=== PATIENT | female | born 1945 | race Hispanic/Latino ===

== ENCOUNTER 2019-09-05 18:24 | Emergency (ER) | payer MEDICARE, OTHER | END 2019-09-05 19:19 | disposition home or self-care (01) | LOC: ERS 18:24 | DX: Z20.828 Contact with and (suspected) exposure to other viral communicable diseases (principal) | CPT/HCPCS: 99282 ==

== ENCOUNTER 2020-03-11 20:20 | Emergency (ER) | payer MEDICARE ==
[2020-03-11 20:57] LABS: #Lymphocytes 1.5 thou/uL (1.20-3.40); #Monocytes 0.4 thou/uL (0.11-0.59); %Basophils 0.8 % (0.0-1.0); %Eosinophils 0.2 % (0.0-10.0); %Lymphocytes 25.5 % (21.0-51.0); %Monocytes 6.1 % (0.0-10.0); %Neutrophils 67.3 % (42.0-75.0); Hemoglobin 11.9 g/dL (12.0-16.0); Mean Corpuscular HGB CONC 34.9 g/dL (32.0-36.0); Mean Corpuscular Hemoglobin 31.3 pg (27.0-31.0); Mean Corpuscular Volume 89.6 fL (78.0-98.0); Mean Platelet Volume 8.1 fL (7.4-10.4); Platelet Count 252 thou/uL (130-400); RBC Distribution Width 11.9 % (11.5-14.5); Red Blood Cell (RBC) Count 3.79 mill/uL (4.20-5.40)
--- NOTE | 2020-03-11 21:03 | RAD ---
PORTABLE CHEST ONE VIEW: 03/11/20 at 8:42 p.m. HISTORY: COVID exposure, symptoms. FINDINGS: The heart size is borderline. The aorta is tortuous. The lungs are expanded without focal areas of co nsolidation, pneumothoraces or pleural effusions. IMPRESSION: No acute process. POS: SILVAA
[2020-03-11 21:18] LABS: ALT (SGPT) 21 U/L (8-55); AST (SGOT) 19 U/L (5-34); Alkaline Phosphatase 65 U/L (40-110); Anion Gap 14 mmol/L (10-20); BUN (Urea Nitrogen) 15 mg/dL (9.8-20.1); Bilirubin, Total 0.8 mg/dL (0.2-1.2); Calc. Creatinine Clearance 0 mL/min (70-130); Calcium 8.5 mg/dL (7.8-10.44); Carbon Dioxide 22 mmol/L (23-31); Chloride 92 mmol/L (98-107); Globulin 2.9 g/dL (2.4-3.5); Glucose 121 mg/dL (83-110); Lipase 9 U/L (8-78); Potassium 3.6 mmol/L (3.5-5.1); Protein, Total 6.9 g/dL (6.0-8.3); Sodium 124 mmol/L (136-145)
[2020-03-11] MEDS ORDERED: Ondansetron PF 4 MG/2 ML Vial ONE (21:20)
[2020-03-11 22:21] LABS: Bilirubin 1+ (Negative); Blood, Urine Negative (Negative); Clarity Turbid (Clear); Glucose, Urine (Dipstick) Normal (Negative); Ketone, Urine Negative (Negative); Leukocyte 500 Leu/uL (Negative); Nitrite 1+ (Negative); Protein, Urine (Dipstick) 20 mg/dL (Neg-Trace); RBC/HPF 0-3 HPF (0-3); Specific Gravity, Urine 1.017 (1.002-1.036)
[2020-03-11 22:22] LABS: Bacteria/HPF 2+ HPF (None Seen); Mucous/LPF Rare LPF (<2+); Squamous Epithelial 21-50 HPF (0-3)
--- NOTE | 2020-03-12 00:08 | CT ---
CT abdomen and pelvis noncontrast HISTORY: Flank pain. FINDINGS: Each renal collecting system, ureter, and urinary bladder are decompressed without stone ev ident. Calcified granulomata at the lung bases consistent with healed granulomatous disease. The 2.7 cm low- density lesion at the left adrenal gland likely represents an adenoma. A 5.2 cm cyst projects laterally from the inferior pole of the right kidney. A small exophytic cyst at the inferior pole of the left kidney is 1.3 cm. Lack of contrast limits evaluation of the soft tissues. No evidence of bowel obstruction or inflammat ion. Diverticula arise from the colon. Degenerative changes of lumbar spine. Scattered hemangiomas of the vertebral bodies. IMPRESSION : No evidence of urinary tract obstruction or calcification. No evidence of bowel obstruction. Bilateral renal cysts. Incidental-type findings as detailed above. Diverticulosis. No evidence of diverticulitis.
== END 2020-03-12 01:08 | disposition home or self-care (01) ==
LOC: ERS 20:20
DX: E87.1 Hypo-osmolality and hyponatremia (principal); Z20.828 Contact with and (suspected) exposure to other viral communicable diseases; I10 Essential (primary) hypertension; Z79.899 Other long term (current) drug therapy
CPT/HCPCS: 71045; 74176; 80053; 81003; 81015; 83690; 84484; 85025; 93005; 96374; J2405

== ENCOUNTER 2020-03-21 10:43 | Observation (INO) | payer MEDICARE ==
[2020-03-21 12:02] LABS: ALT (SGPT) 20 U/L (8-55); AST (SGOT) 19 U/L (5-34); Albumin 3.9 g/dL (3.4-4.8); Alkaline Phosphatase 65 U/L (40-110); Anion Gap 14 mmol/L (10-20); BUN (Urea Nitrogen) 21 mg/dL (9.8-20.1); Bilirubin, Total 0.8 mg/dL (0.2-1.2); Calc. Creatinine Clearance 0 mL/min (70-130); Calcium 8.3 mg/dL (7.8-10.44); Carbon Dioxide 22 mmol/L (23-31); Chloride 96 mmol/L (98-107); Globulin 2.8 g/dL (2.4-3.5); Glucose 106 mg/dL (83-110); Potassium 4.1 mmol/L (3.5-5.1); Protein, Total 6.7 g/dL (6.0-8.3); Sodium 128 mmol/L (136-145)
--- NOTE | 2020-03-21 12:05 | RAD ---
RADIOGRAPH CHEST 1 VIEW: DATE: 03/21/2020 TIME: 11:56 AM HISTORY: 74-year-old female with cough COMPARISON: 03/11/2020 FINDINGS: New finding of faint, small, mild reticulonodular infiltrates at left mid and lower lung zones. No cardiomegaly or pneumothorax. IMPRESSION: Mild left-sided infiltrates: Evidence for early left-sided pneumonia.
[2020-03-21 12:15] LABS: #Lymphocytes 0.9 thou/uL (1.20-3.40); #Monocytes 0.4 thou/uL (0.11-0.59); %Basophils 0.4 % (0.0-1.0); %Eosinophils 0.1 % (0.0-10.0); %Lymphocytes 14.2 % (21.0-51.0); %Monocytes 5.6 % (0.0-10.0); %Neutrophils 79.7 % (42.0-75.0); Hemoglobin 12.1 g/dL (12.0-16.0); Mean Corpuscular HGB CONC 35.2 g/dL (32.0-36.0); Mean Corpuscular Hemoglobin 31.3 pg (27.0-31.0); Mean Platelet Volume 7.4 fL (7.4-10.4); Platelet Count 262 thou/uL (130-400); RBC Distribution Width 11.7 % (11.5-14.5); Red Blood Cell (RBC) Count 3.85 mill/uL (4.20-5.40); White Blood Cell (WBC) Count 6.2 thou/uL (4.8-10.8)
[2020-03-21] MEDS ORDERED: Ibuprofen 200 MG TAB ONE (12:18)
[2020-03-21] MEDS ORDERED: Acetaminophen 500 MG TAB ONE (12:18)
[2020-03-21 13:26] LABS: Bacteria/HPF 4+ HPF (None Seen); Bilirubin Negative (Negative); Blood, Urine Negative (Negative); Clarity Turbid (Clear); Glucose, Urine (Dipstick) Normal (Negative); Ketone, Urine Negative (Negative); Leukocyte 250 Leu/uL (Negative); Nitrite 2+ (Negative); Protein, Urine (Dipstick) 10 mg/dL (Neg-Trace); RBC/HPF 0-3 HPF (0-3); Specific Gravity, Urine 1.019 (1.002-1.036); Urobilinogen Normal mg/dL (Less than 2); WBC/HPF 21-50 HPF (0-3)
--- NOTE | 2020-03-21 13:53 | PDOC.HHP ---
Hospitalist HPI - History of Present Illness Upper back pain History of Present Illness: 74-year-old female who came to emergency room with a complaint of of back pain, She was also having nausea last night, patient reports that 2 weeks ago she was diagnosed with COVID-19 and she recovered well, currently she does not have any shortness of breath or chest pain or sinus symptoms or sore throat. In the em ergency room patient was found with hyponatremia, she he had a chest x-ray which showed mild left-sided infiltrate, patient denies any fever or chills. In the emergency room patient is given Rocephin, Tylenol ibuprofen. Her urine analysis was consistent with UTI, ED Course: Patient is given Rocephin, Tylenol and ibuprofen VITAL SIGNS SatMar 21, 2020 10:[address] [facility] BP: 127/68, Pulse: 89, Resp: 20, Temp: 99.2 (Oral), Pain: 8, O2 sat: 96 on (Room Air), Time: 03/21/2020 10:49. VITAL SIGNS SatMar 21, 2020 11:58 JAS Schultz [facility] BP: 112/67, Pulse: 78, Resp: 18, Temp: 98.9 (Oral), O2 sat: 97% on (Room Air), Time: 03/21/2020 11:58. VITAL SIGNS SatMar 21, 2020 12:51 JAS Schultz Margaret BP: 113/72, Pulse: 79, Resp: 18, Temp: 98.0 (Oral), Pain: 6, O2 sat: 97% on (Room Air), Time: 03/21/2020 12:51. Hospitalist ROS - Review of Systems Eyes: denies: pain, vision change, conjunctivae inflammation, eyelid inflammation, redness, other ENT: denies: ear pain, ear discharge, nose pain, nose discharge, nose congestion, mouth pain, mouth swelling, throat pain, throat swelling, other Respiratory: denies: cough, dry, shortness of breath, hemoptysis, SOB with excertion, pleuritic pain, sputum, wheezing, other Cardiovascular: denies: chest pain, palpitations, orthopnea, paroxysmal noc. dyspnea, edema, light headedness, other Gastrointestinal: denies: nausea, vomiting, abdominal pain, diarrhea, constipation, melena, hematochezia, other Musculoskeletal: reports: back pain. denies: neck pain, shoulder pain, arm pain, hand pain, leg pain, foot pain, other Skin: denies: rash, lesions, teresa, bruising, other - Medication Medications: Allergies hydrocodone Allergy (Verified 03/17/13 11:45) Penicillins Allergy (Verified 03/17/13 11:45) Medication Instructions Recorded Confirmed Type Meclizine HCl [Antivert] 25 mg PO Q8H PRN #0 tab 11/13/14 Rx Hospitalist History - Past Medical History Other Medical History: Hypertension - Past Surgical History Other Surgical History: Appendicectomy, Cholecystectomy, Hysterectomy - Family History Other Family History: No strong family history of premature coronary artery disease stroke or cancer - Social History Other Social History: No history of tobacco alcohol or illicit drug abuse, lives at home with family - Exam General Appearance: NAD, awake alert Eye: PERRL, anicteric sclera ENT: normocephalic atraumatic, no oropharyngeal lesions Neck: supple, symmetric, no JVD, no thyromegaly Heart: RRR, no murmur, no gallops, no rubs Respiratory: no wheezes, no ronchi Respiratory - other findings: Left basal rales Gastrointestinal: soft, non-tender, non-distended, normal bowel sounds Extremities: no cyanosis, no clubbing, no edema Skin: normal turgor, no lesions Neurological: no focal deficits Musculoskeletal: normal tone, normal strength, no muscle wasting Psychiatric: normal affect, normal behavior, A&O x 3 Hospitalist Results - Labs Result Diagrams: 03/21/20 11:30 03/21/20 11:30 Lab results: WBC 6.2 thou/uL (4.8-10.8) 03/21/20 11:30 Hgb 12.1 g/dL (12.0-16.0) 03/21/20 11:30 Hct 34.3 % (36.0-47.0) L 03/21/20 11:30 MCV 89.0 fL (78.0-98.0) 03/21/20 11:30 Plt Count 262 thou/uL (130-400) 03/21/20 11:30 Neutrophils % 79.7 % (42.0-75.0) H 03/21/20 11:30 Sodium 128 mmol/L (136-145) L 03/21/20 11:30 Potassium 4.1 mmol/L (3.5-5.1) 03/21/20 11:30 Chloride 96 mmol/L (98-107) L 03/21/20 11:30 Carbon Dioxide 22 mmol/L (23-31) L 03/21/20 11:30 BUN 21 mg/dL (9.8-20.1) H 03/21/20 11:30 Creatinine 0.74 mg/dL (0.6-1.1) 03/21/20 11:30 Glucose 106 mg/dL (83-110) 03/21/20 11:30 Calcium 8.3 mg/dL (7.8-10.44) 03/21/20 11:30 Total Bilirubin 0.8 mg/dL (0.2-1.2) 03/21/20 11:30 AST 19 U/L (5-34) 03/21/20 11:30 ALT 20 U/L (8-55) 03/21/20 11:30 Alkaline Phosphatase 65 U/L (40-110) 03/21/20 11:30 Troponin I Less than 0.010 ng/mL (< 0.028) 03/21/20 11:30 Serum Total Protein 6.7 g/dL (6.0-8.3) 03/21/20 11:30 Albumin 3.9 g/dL (3.4-4.8) 03/21/20 11:30 Urine Ketones Negative mg/dL (Negative) 03/21/20 12:47 Urine Blood Negative (Negative) 03/21/20 12:47 Urine Nitrite 2+ (Negative) A 03/21/20 12:47 Ur Leukocyte Esterase 250 Simeon/uL (Negative) A 03/21/20 12:47 Urine RBC 0-3 HPF (0-3) 03/21/20 12:47 Urine WBC 21-50 HPF (0-3) A 03/21/20 12:47 Ur Squamous Epith Cells 11-20 HPF (0-3) A 03/21/20 12:47 Urine Bacteria 4+ HPF (None Seen) A 03/21/20 12:47 - Radiology Interpretation Chest x-ray Status: image reviewed by me Additional Comment: Left lower lobe pneumonia Hospitalist H&P A/P - Problem (1) Left lower lobe pneumonia Code(s): J18.9 - PNEUMONIA, UNSPECIFIED ORGANISM Status: Acute Qualifiers: Pneumonia type: due to unspecified organism Qualified Code(s): J18.9 - Pneumonia, unspecified organism (2) UTI (urinary tract infection) Status: Acute Qualifiers: Urinary tract infection type: acute cystitis Hematuria presence: without hematuria Qualified Code(s): N30.00 - Acute cystitis without hematuria (3) Hyponatremia Code(s): E87.1 - HYPO-OSMOLALITY AND HYPONATREMIA Status: Acute (4) History of 2019 novel coronavirus disease (COVID-19) Code(s): Z86.19 - PERSONAL HISTORY OF OTHER INFECTIOUS AND PARASITIC DISEASES Status: Acute (5) Hypertension Code(s): I10 - ESSENTIAL (PRIMARY) HYPERTENSION Status: Chronic - Plan Plan: Regarding pneumonia and UTI we will follow-up on culture result, will start empiric levofloxacin, Regarding hyponatremia we will check urine sodium, urine creatinine, osmolarity, TSH and lipid profile, we will give her gentle IV fluid 1 L and will repeat labs tomorrow
[2020-03-21] MEDS ORDERED: cefTRIAXone\\ROCEPHIN 2 GM VIAL ONE (14:23)
[2020-03-21] MEDS ORDERED: Bisacodyl 10 MG SUPP PR PRN (15:40)
[2020-03-21] MEDS ORDERED: Guaifenesin DM 100-10/5 ML UDCUP PO PRN (15:40)
[2020-03-21] MEDS ORDERED: Sodium Chloride 0.9% 1,000 ML IV SCH (15:40)
[2020-03-21] MEDS ORDERED: Zolpidem Tartrate 5 MG TAB PO PRN (15:40)
[2020-03-21] MEDS ORDERED: Senokot S 8.6-50 MG TAB PO PRN (15:40)
[2020-03-21] MEDS ORDERED: Acetaminophen 325 MG TAB PO PRN (15:40)
[2020-03-21] MEDS ORDERED: Loperamide HCl 2 MG CAP PO PRN (15:40)
[2020-03-21] MEDS ORDERED: Calcium Carbonate 500 MG ChewTAB PO PRN (15:40)
[2020-03-21 15:51] VITALS: BMI 27.8
[2020-03-21 17:18] LABS: Creatinine, Urine 158.46 mg/dL (47-110)
[2020-03-21] MEDS: Famotidine 20 MG TAB PO SCH (20:22)
[2020-03-21] MEDS ORDERED: Promethazine HCl 12.5 MG in Sodium Chloride 0.9% 50 ML IVPB PRN (21:02)
[2020-03-22 06:27] LABS: Anion Gap 14 mmol/L (10-20); BUN (Urea Nitrogen) 21 mg/dL (9.8-20.1); Calc. Creatinine Clearance 75 mL/min (70-130); Calcium 8.4 mg/dL (7.8-10.44); Carbon Dioxide 22 mmol/L (23-31); Chloride 99 mmol/L (98-107); Glucose 86 mg/dL (83-110); Sodium 131 mmol/L (136-145)
[2020-03-22 06:42] LABS: #Lymphocytes 1.1 thou/uL (1.20-3.40); #Monocytes 0.3 thou/uL (0.11-0.59); #Neutrophils 3.5 thou/uL (1.40-6.50); %Basophils 0.3 % (0.0-1.0); %Eosinophils 0.2 % (0.0-10.0); %Lymphocytes 22.5 % (21.0-51.0); %Monocytes 6.8 % (0.0-10.0); %Neutrophils 70.1 % (42.0-75.0); Hemoglobin 11.7 g/dL (12.0-16.0); Mean Corpuscular HGB CONC 35.2 g/dL (32.0-36.0); Mean Corpuscular Hemoglobin 30.9 pg (27.0-31.0); Mean Corpuscular Volume 87.9 fL (78.0-98.0); Mean Platelet Volume 7.3 fL (7.4-10.4); Platelet Count 253 thou/uL (130-400); RBC Distribution Width 11.6 % (11.5-14.5); Red Blood Cell (RBC) Count 3.77 mill/uL (4.20-5.40); White Blood Cell (WBC) Count 4.9 thou/uL (4.8-10.8)
[2020-03-22] MEDS: Famotidine 20 MG TAB PO SCH (08:26)
[2020-03-22] MEDS ORDERED: Enoxaparin Sodium 40 MG/0.4 ML SYRINGE SC SCH (09:00)
[2020-03-22 10:40] VITALS: BP 103/66; TEMP 98
--- NOTE | 2020-03-22 10:52 | PDOC.DS.DS ---
Provider - Provider Date of Admission: 03/21/20 12:41 Date of Discharge: 03/22/20 Admitting Provider: Michelle Abernathy MD Primary Care Physician: HARIKA COOK MD Course - Hospital Course Hospital Course: 74-year-old female who came to emergency room with main complaint of back pain,Routine evaluation in emergency room showed normal CBC, her BMP showed hyponatremia, her urine analysis was also consistent with UTI, chest x-ray showed left-sided early pneumonia, patient was given levofloxacin, patient was observed in hospital, she was given IV fluid, her sodium improved to 131, on discharge we prescribed levofloxacin for another 7 days, she will continue all her previous medication, patient is medically stable for discharge, Resuscitation Status: 03/21/20 14:03 Resuscitation Status Routine Resuscitation Status: FULL: Full Resuscitation - Labs Lab Results: 03/22/20 05:38 03/22/20 05:38 Abnormal Lab Results - Last 48 hrs 03/21/20 11:30: Sodium 128 L, Chloride 96 L, Carbon Dioxide 22 L, BUN 21 H 03/21/20 11:30: RBC 3.85 L, Hct 34.3 L, MCH 31.3 H, Neutrophils % 79.7 H, Lymph ocytes % 14.2 L, Lymphocytes # 0.9 L 03/21/20 12:47: Urine Clarity Turbid A, Urine Nitrite 2+ A, Ur Leukocyte Esterase 250 A, Urine WBC 21-50 A, Ur Squamous Epith Cells 11-20 A, Urine Bacteria 4+ A 03/21/20 12:47: Urine Creatinine 158.46 H 03/21/20 16:24: Serum Osmolality 265 L 03/22/20 05:38: Sodium 131 L, Carbon Dioxide 22 L, BUN 21 H 03/22/20 05:38: RBC 3.77 L, Hgb 11.7 L, Hct 33.1 L, MPV 7.3 L, Lymphocytes # 1.1 L - Physical Exam Vitals: Vital Signs (12 hours) Temp Pulse Resp BP BP Pulse Ox 03/22/20 10:39 98 F 90 16 103/66 96 03/22/20 10:34 98 F 90 16 103/66 96 03/22/20 08:49 99.2 F 82 18 124/72 97 03/22/20 07:57 99.2 F 82 18 124/72 97 03/22/20 07:00 99.5 F 77 16 121/73 95 03/22/20 00:00 98.1 F 73 18 130/74 95 Weight Weight 156 lb 1.6 oz Physical Exam: The patient was seen and examined on the day of discharge. General patient is currently alert and awake no acute distress Head normocephalic atraumatic Neck supple no JVD no meningeal signs of irritation Lungs clear to auscultation without any rhonchi or rales Cardiac S1-S2 regular no murmur no gallop no rub Abdomen soft, bowel sounds present, nontender nondistended no organomegaly no mass Extremities no edema Neurologic nonfocal examination Problem - Problem (1) Left lower lobe pneumonia Code(s): J18.9 - PNEUMONIA, UNSPECIFIED ORGANISM Status: Acute Qualifiers: Pneumonia type: due to unspecified organism Qualified Code(s): J18.9 - Pneumonia, unspecified organism (2) UTI (urinary tract infection) Status: Acute Qualifiers: Urinary tract infection type: acute cystitis Hematuria presence: without hematuria Qualified Code(s): N30.00 - Acute cystitis without hematuria (3) Hyponatremia Code(s): E87.1 - HYPO-OSMOLALITY AND HYPONATREMIA Status: Acute (4) History of 2019 novel coronavirus disease (COVID-19) Code(s): Z86.19 - PERSONAL HISTORY OF OTHER INFECTIOUS AND PARASITIC DISEASES Status: Acute (5) Hypertension Code(s): I10 - ESSENTIAL (PRIMARY) HYPERTENSION Status: Chronic Plan - Discharge Medications Prescriptions: Levofloxacin [Levaquin] 750 mg PO DAILY #7 tab Home Medications: Medication Instructions Recorded Confirmed Type Acetaminophen [Tylenol] 325 mg PO PRN PRN 03/21/20 03/21/20 History Lisinopril 5 mg PO DAILY 03/21/20 03/21/20 History Levofloxacin [Levaquin] 750 mg PO DAILY #7 tab 03/22/20 Rx Allergies: hydrocodone Allergy (Verified 03/17/13 11:45) Penicillins Allergy (Verified 03/17/13 11:45) sulfamethoxazole [From Bactrim] Allergy (Verified 03/21/20 15:42) trimethoprim [From Bactrim] Allergy (Verified 03/21/20 15:42) - Discharge Instructions Activity:: Activity as Tolerated Nourishment:: Heart Healthy Diet Therapies:: Not Applicable Equipment/Supplies:: Not Applicable IV Therapy:: Not Applicable - Follow up Plan Referrals: HARIKA COOK MD [Primary Care Provider] - 7 Days Disposition: HOME Quality - Care Measures CORE MEASURES:: N/A
== END 2020-03-22 11:34 | disposition home or self-care (01) ==
LOC: ERS 10:43 → T4-A 12:41
PROVIDERS: ADMIT Internal Medicine; ATTEND Internal Medicine
DX: J18.9 Pneumonia, unspecified organism (principal); N30.00 Acute cystitis without hematuria; E87.1 Hypo-osmolality and hyponatremia; I10 Essential (primary) hypertension; Z86.19 Personal history of other infectious and parasitic diseases; Z79.899 Other long term (current) drug therapy; Z88.0 Allergy status to penicillin; Z88.1 Allergy status to other antibiotic agents; Z88.2 Allergy status to sulfonamides; Z88.5 Allergy status to narcotic agent
CPT/HCPCS: 36415; 71045; 80048; 80053; 81003; 81015; 82533; 82570; 83930; 83935; 84300; 84443; 84484; 85025; 96365; 96372; 96375; G0378; J0696; J1650; J1956; J2550

== ENCOUNTER 2020-03-24 13:45 | Emergency (ER) | payer MEDICARE ==
[2020-03-24 14:27] LABS: #Monocytes 0.5 thou/uL (0.11-0.59); #Neutrophils 4.5 thou/uL (1.40-6.50); %Basophils 0.2 % (0.0-1.0); %Eosinophils 0.3 % (0.0-10.0); %Lymphocytes 16.2 % (21.0-51.0); %Monocytes 7.6 % (0.0-10.0); %Neutrophils 75.7 % (42.0-75.0); Hemoglobin 11.9 g/dL (12.0-16.0); Mean Corpuscular HGB CONC 34.3 g/dL (32.0-36.0); Mean Corpuscular Hemoglobin 30.3 pg (27.0-31.0); Mean Corpuscular Volume 88.3 fL (78.0-98.0); Mean Platelet Volume 6.9 fL (7.4-10.4); Platelet Count 297 thou/uL (130-400); RBC Distribution Width 11.5 % (11.5-14.5); Red Blood Cell (RBC) Count 3.94 mill/uL (4.20-5.40); White Blood Cell (WBC) Count 5.9 thou/uL (4.8-10.8)
[2020-03-24 14:55] LABS: ALT (SGPT) 19 U/L (8-55); AST (SGOT) 19 U/L (5-34); Albumin 3.7 g/dL (3.4-4.8); Alkaline Phosphatase 64 U/L (40-110); Anion Gap 16 mmol/L (10-20); BUN (Urea Nitrogen) 14 mg/dL (9.8-20.1); Bilirubin, Total 0.7 mg/dL (0.2-1.2); Calc. Creatinine Clearance 0 mL/min (70-130); Calcium 8.6 mg/dL (7.8-10.44); Carbon Dioxide 22 mmol/L (23-31); Chloride 95 mmol/L (98-107); Glucose 137 mg/dL (83-110); Potassium 3.5 mmol/L (3.5-5.1); Protein, Total 6.7 g/dL (6.0-8.3); Sodium 129 mmol/L (136-145)
[2020-03-24] MEDS ORDERED: Ketorolac Tromethamine 30 MG/ML VIAL ONE (14:56)
[2020-03-24] MEDS ORDERED: Ondansetron PF 4 MG/2 ML Vial ONE (14:56)
[2020-03-24] MEDS ORDERED: Morphine 2 MG/ML VIAL ONE (14:56)
--- NOTE | 2020-03-24 15:23 | RAD ---
EXAM: CHEST ONE VIEW: 03/24/20 HISTORY: Weakness, no appetite, chest pain, vomiting. FINDINGS: Patchy interstitial alveolar and ground glass opacity changes mostly in the left mid lower lung zone with little change from the prior study. Isolated right lower lobe granuloma calcification. IMPRESSION: Minimal patchy parenchymal changes in the left lower mid lateral lung zone slightly worse than prior stud, evidence for COVID pneumonia. POS: RRE
[2020-03-24 15:58] LABS: Bilirubin Negative (Negative); Blood, Urine Negative (Negative); Clarity Clear (Clear); Glucose, Urine (Dipstick) Normal (Negative); Ketone, Urine Negative (Negative); Leukocyte Negative Leu/uL (Negative); Nitrite Negative (Negative); Protein, Urine (Dipstick) Negative (Neg-Trace); Specific Gravity, Urine 1.005 (1.002-1.036); Urobilinogen Normal mg/dL (Less than 2); pH, Urine 6.5 (5.0-9.0)
--- NOTE | 2020-03-24 17:33 | CT ---
CT ANGIOGRAM THORAX WITH CONTRAST: (CTA pulmonary angiogram) DATE: 03/24/2020 HISTORY: 74-year-old COVID-19 positive female with hypoxia and chest pain TECHNIQUE: IV injection of iodinated contrast. Scan acquisition timing attempted to coincide with iodinated contrast bolus reaching maximal density in pulmonary arteries. 3-D MIP reconstructions. FINDINGS: Multifocal small patchy scattered infiltrates: Mildly in anterior segment right upper lobe, mild-mode rately in anterior segment left upper lobe,. A peripheral pleural-based consolidation of small to moderate size involving apical posterior segment left upper lobe. Multifocal such small consolidations involving left lower lobe. Additional small patchy mild infiltrates scattered in bilateral lower lobes elsewhere. Ectasia and tortuosity of thoracic aorta without dissection or aneurysm. 3 x 2 cm left adrenal nodule. Noncontrast CT of abdomen of 03/11/2020 shows density of approximately 12 Hounsfield units. This could be an adrenal adenoma, but that is not definitive. No pulmonary thromboembolism. No pleural effusion or pneumothorax. Multiple nonspecific mildly enlarged mediastinal lymph nodes, especially subcarinal region. IMPRESSION: 1) multifocal mild to moderate pulmonary infiltrates, left greater than right, probably representing COVID-19 pneumonia. 2) 3 cm left adrenal nodule. On nonemergent, elective basis, MRI of the abdomen, adrenal mass protoco l, with and without contrast, is recommended. 3) no evidence of pulmonary thromboembolism.
== END 2020-03-24 19:52 | disposition home or self-care (01) ==
LOC: ERS 13:45
DX: U07.1 COVID-19 (principal); J12.89 Other viral pneumonia; I10 Essential (primary) hypertension; Z79.899 Other long term (current) drug therapy
CPT/HCPCS: 71045; 71275; 80053; 81003; 84484; 85025; 87086; 93005; 99284; J2270; J1885; J2405

== ENCOUNTER 2020-06-03 10:42 | Outpatient (CLI) | payer MEDICARE | END 2020-06-03 10:43 | disposition home or self-care (01) | LOC: BICMAMMO 10:42 | PROVIDERS: ATTEND Internal Medicine | DX: Z12.31 Encounter for screening mammogram for malignant neoplasm of breast (principal); Z13.820 Encounter for screening for osteoporosis; M81.0 Age-related osteoporosis without current pathological fracture; M85.852 Other specified disorders of bone density and structure, left thigh | CPT/HCPCS: 77063; 77067; 77080 ==

== ENCOUNTER 2020-06-23 12:12 | Outpatient (CLI) | payer MEDICARE | END 2020-06-23 12:13 | disposition home or self-care (01) | LOC: BICRAD 12:12 | PROVIDERS: ATTEND Internal Medicine | DX: U07.1 COVID-19 (principal); J12.82 Pneumonia due to coronavirus disease 2019; R05 Cough | CPT/HCPCS: 71046 ==

== ENCOUNTER 2020-12-06 16:04 | Outpatient (CLI) | payer MEDICARE | END 2020-12-06 16:05 | disposition home or self-care (01) | LOC: BICRAD 16:04 | PROVIDERS: ATTEND Internal Medicine | DX: M79.672 Pain in left foot (principal) ==

== ENCOUNTER 2022-04-17 05:50 | Emergency (ER) | payer MEDICARE ==
[2022-04-17] MEDS ORDERED: Ketorolac Tromethamine 30 MG/ML VIAL ONE (07:07)
== END 2022-04-17 07:32 | disposition home or self-care (01) ==
LOC: ERS 05:50
DX: S92.422A Displaced fracture of distal phalanx of left great toe, initial encounter for closed fracture (principal); I10 Essential (primary) hypertension; Z79.899 Other long term (current) drug therapy; W20.8XXA Other cause of strike by thrown, projected or falling object, initial encounter
CPT/HCPCS: 96372; J1885

== ENCOUNTER 2024-04-07 18:11 | Emergency (ER) | payer MEDICARE ==
[2024-04-07] MEDS ORDERED: Ketorolac Tromethamine 30 MG (1 mL) VIAL ONE (19:15)
[2024-04-07] MEDS ORDERED: Ondansetron PF 4 MG/2 ML Vial ONE (19:15)
[2024-04-07 19:20] LABS: #Basophils Less than 0.03 10x3/uL (0.0-0.2); #Eosinophils Less than 0.03 10x3/uL (0.0-0.7); %Basophils 0.5 % (0.0-1.0); %Eosinophils 0.5 % (0.0-10.0); %Lymphocytes 8.9 % (21.0-51.0); %Monocytes 9.6 % (0.0-10.0); %Neutrophils 80.2 % (42.0-75.0); Hematocrit 33.8 % (36.0-47.0); Hemoglobin 11.3 g/dL (12.0-16.0); Mean Corpuscular HGB CONC 33.4 g/dL (32.0-36.0); Mean Corpuscular Hemoglobin 29.5 pg (27.0-31.0); Mean Corpuscular Volume 88.3 fL (78.0-98.0); Mean Platelet Volume 10.4 fL (7.4-10.4); Platelet Count 191 10x3/uL (130-400); RBC Distribution Width 12.6 % (11.5-14.5); Red Blood Cell (RBC) Count 3.83 mill/uL (4.20-5.40)
[2024-04-07 19:34] LABS: ALT (SGPT) 13 U/L (8-55); AST (SGOT) 20 U/L (5-34); Albumin 3.7 g/dL (3.4-4.8); Alkaline Phosphatase 49 U/L (40-110); Anion Gap 13 mmol/L (10-20); BUN (Urea Nitrogen) 14 mg/dL (9.8-20.1); Bilirubin, Total 0.6 mg/dL (0.2-1.2); Calc. Creatinine Clearance 0 mL/min (70-130); Calcium 8.6 mg/dL (7.8-10.44); Carbon Dioxide 20 mmol/L (23-31); Chloride 106 mmol/L (98-107); Estimated GFR 89; Globulin 3.3 g/dL (2.4-3.5); Glucose 121 mg/dL (83-110); Potassium 3.8 mmol/L (3.5-5.1); Sodium 135 mmol/L (136-145)
[2024-04-07 19:48] LABS: Troponin I Less than 0.010 ng/mL (< 0.028)
== END 2024-04-07 20:29 | disposition home or self-care (01) ==
LOC: ERS 18:11
DX: J10.1 Influenza due to other identified influenza virus with other respiratory manifestations (principal); I10 Essential (primary) hypertension
CPT/HCPCS: 71046; 80053; 83605; 83880; 84484; 85025; 87428; 93005; J1885; J2405; 36415; 96374; 96375